=== PATIENT | female | born 1965 | race African-American/Black ===

== ENCOUNTER 2020-02-07 17:51 | Emergency (ER) | payer MEDICAID ==
[~2020-02-07] VITALS: Ht 165.1 cm; Wt 61.0 kg
[2020-02-07] MEDS ORDERED: DIPHENHYDRAMINE 50MG/ML VIAL IV ONE (18:45)
[2020-02-07] MEDS ORDERED: KETOROLAC 30MG/ML VIAL IV ONE (18:45)
[2020-02-07] MEDS ORDERED: METHYLPREDNISOLONE SOD SUCC 125 MG/2 ML VIAL IV ONE (19:30)
[2020-02-07 19:44] VITALS: BP 148/90
[2020-02-07] MEDS ORDERED: GABAPENTIN 100MG CAPSULE PO SCH (22:00)
== END 2020-02-07 20:52 | disposition home or self-care (01) ==
LOC: ER 17:51
DX: L23.3 Allergic contact dermatitis due to drugs in contact with skin (principal); T36.0X5A Adverse effect of penicillins, initial encounter; Y92.018 Other place in single-family (private) house as the place of occurrence of the external cause
CPT/HCPCS: 96374; 96375; 99284; J1200; J1885; J2930

== ENCOUNTER 2020-11-22 16:17 | Inpatient (IN) | payer MEDICAID, OTHER ==
[~2020-11-22] VITALS: Ht 167.6 cm; Wt 91.2 kg
[2020-11-22] MEDS ORDERED: HCTZ PO (16:25)
[2020-11-22] MEDS ORDERED: PERCOCET PO (16:25)
[2020-11-22] MEDS ORDERED: LISINOPRIL (16:25)
[2020-11-22] MEDS ORDERED: IPRATROPIUM/ALBUTEROL 0.5-3(2.5)MG/3ML NEB HHN ONE ×2 (17:00→21:30)
[2020-11-22] MEDS ORDERED: NITROGLYCERIN OINT 1GM/INCH UDPKT TD ONE (17:45)
[2020-11-22] MEDS ORDERED: FUROSEMIDE 40MG/4ML VIAL IVP ONE (17:45)
[2020-11-22 18:30] LABS: BASOPHILS % 1.3 % (0.0-2.0); EOSINOPHILS % 2.9 % (0.0-5.0); HEMATOCRIT. 37.5 % (36.0-48.0); HEMOGLOBIN. 12.6 g/dL (12.0-16.0); LYMPHOCYTES % 44.8 % (20.0-50.0); MEAN CORPUSCULAR VOLUME 101.1 fL (81.0-99.0); MONOCYTES % 6.8 % (2.0-8.0); NEUTROPHILS % 44.2 % (40.0-76.0); PLATELET 217 x1000/uL (130-400); RED CELL DISTRIBUTION WIDTH 15.5 % (11.6-14.6)
[2020-11-22 18:37] LABS: CHLORIDE 113 mEq/L (98-107)
[2020-11-22] MEDS ORDERED: NITROGLYCERIN 0.4MG TABLET SL SL ONE (22:15)
[2020-11-22] MEDS ORDERED: MORPHINE SULFATE 4 MG/ML CPJ (NOT FOR IM USE) IV ONE (22:15)
[2020-11-23] MEDS ORDERED: FUROSEMIDE 40MG/4ML VIAL IVP ONE
[2020-11-23] MEDS ORDERED: MORPHINE SULFATE 4 MG/ML CPJ (NOT FOR IM USE) IV ONE
[2020-11-23] MEDS ORDERED: MORPHINE SULFATE 2 MG/ML CPJ (NOT FOR IM USE) IV PRN (05:45)
[2020-11-23 09:20] VITALS: BP_SYST 109; BP_SYST 145; BP_DIAS 86
[2020-11-23] MEDS ORDERED: ATOR20TA PO (09:49)
[2020-11-23] MEDS ORDERED: IBUP-2030 PO (09:49)
[2020-11-23] MEDS ORDERED: ALBUTEROL 6.7GM HFA INHALER ORI PRN ×2 (11:45→20:00)
[2020-11-23] MEDS ORDERED: IPRATROPIUM/ALBUTEROL 0.5-3(2.5)MG/3ML NEB HHN PRN (11:45)
[2020-11-23 12:00] VITALS: BP 127/73
[2020-11-23 14:33] LABS: *AMPHETAMINES SCREEN URINE NEGATIVE (NEGATIVE); *BARBITURATES SCREEN URINE NEGATIVE (NEGATIVE); *BENZODIAZEPINES SCREEN URINE NEGATIVE (NEGATIVE); *COCAINE SCREEN URINE NEGATIVE (NEGATIVE); METHADONE URINE SCREEN NEGATIVE (NEGATIVE)
[2020-11-23 14:34] LABS: CANNABINOID URINE SCREEN NEGATIVE (NEGATIVE); OPIATES URINE SCREEN PRESUMTIVE POSITIVE (NEGATIVE); PHENCYCLIDINE URINE SCREEN PRESUMTIVE POSITIVE (NEGATIVE)
[2020-11-23 16:00] VITALS: BP 109/84
[2020-11-23] MEDS: FUROSEMIDE 40MG/4ML VIAL IVP SCH (16:17)
[2020-11-23] MEDS ORDERED: ENOXAPARIN 40MG/0.4ML SYR SUBCUT SCH (18:00)
[2020-11-23 20:00] VITALS: BP 108/81
[2020-11-23] MEDS ORDERED: METHYLPREDNISOLONE SOD SUCC 125 MG/2 ML VIAL IV ONE (20:30)
[2020-11-23] MEDS ORDERED: ATORVASTATIN CALCIUM 20MG TABLET PO SCH (21:00)
[2020-11-23] MEDS ORDERED: IOHEXOL-350 100 ML BOTTLE ONE (23:17)
[2020-11-24] VITALS (7 sets, daily range): BP systolic 96–143; BP diastolic 62–96
[2020-11-24] MEDS ORDERED: ALBUTEROL (0.083%) 2.5MG/3ML NEB HHN PRN (00:15)
[2020-11-24] MEDS: METHYLPREDNISOLONE SOD SUCC 40 MG/ML VIAL IV SCH ×3 (05:20→21:11)
[2020-11-24] MEDS: FUROSEMIDE 40MG/4ML VIAL IVP SCH ×2 (06:35→16:16)
[2020-11-24 07:25] LABS: BASOPHILS % 0.3 % (0.0-2.0); HEMATOCRIT. 38.4 % (36.0-48.0); HEMOGLOBIN. 13.2 g/dL (12.0-16.0); LYMPHOCYTES % 23.4 % (20.0-50.0); MEAN CORPUSCULAR HEMOGLOBIN 34.5 pg (28.0-32.0); MEAN CORPUSCULAR VOLUME 100.4 fL (81.0-99.0); MEAN PLATELET VOLUME 9.5 fl (7.4-10.4); MONOCYTES % 0.9 % (2.0-8.0); NEUTROPHILS % 75.4 % (40.0-76.0); PLATELET 221 x1000/uL (130-400); RED BLOOD CELL COUNT 3.83 mill/uL (4.2-5.4); RED CELL DISTRIBUTION WIDTH 15.3 % (11.6-14.6)
[2020-11-24 07:31] LABS: CHLORIDE 104 mEq/L (98-107)
[2020-11-24 07:58] LABS: HDL CHOLESTEROL 59 mg/dL (40-59); LDL CHOLESTEROL 181 mg/dL (5-100)
[2020-11-24] MEDS ORDERED: TRAMADOL 50MG TABLET PO PRN (13:45)
[2020-11-24] MEDS: ENOXAPARIN 30MG/0.3ML SYR SUBCUT SCH (16:16)
[2020-11-24] MEDS ORDERED: METO25TA6 MT (19:40)
[2020-11-24] MEDS ORDERED: LIP40 MT (19:40)
[2020-11-24] MEDS ORDERED: ASPI-1160 MT (19:40)
[2020-11-24] MEDS ORDERED: MED4 MT (19:40)
[2020-11-24] MEDS ORDERED: FURO-151 MT (19:40)
[2020-11-24] MEDS ORDERED: ATORVASTATIN CALCIUM 20MG TABLET PO SCH (21:00)
[2020-11-24] MEDS: METOPROLOL TARTRATE 25MG TABLET PO SCH (21:11)
[2020-11-24] MEDS ORDERED: ACETAMINOPHEN 325MG TABLET PO PRN (21:15)
[2020-11-25] VITALS (7 sets, daily range): BP systolic 95–121; BP diastolic 61–91
[2020-11-25] MEDS: ENOXAPARIN 30MG/0.3ML SYR SUBCUT SCH ×2 (00:39→08:36)
[2020-11-25] MEDS: METHYLPREDNISOLONE SOD SUCC 40 MG/ML VIAL IV SCH ×2 (06:24→13:54)
[2020-11-25] MEDS: FUROSEMIDE 40MG/4ML VIAL IVP SCH ×2 (06:24→16:47)
[2020-11-25 06:30] LABS: BASOPHILS % 0.2 % (0.0-2.0); HEMATOCRIT. 35.2 % (36.0-48.0); HEMOGLOBIN. 12.1 g/dL (12.0-16.0); LYMPHOCYTES % 13.4 % (20.0-50.0); MEAN CORPUSCULAR HEMOGLOBIN 33.9 pg (28.0-32.0); MEAN CORPUSCULAR VOLUME 98.9 fL (81.0-99.0); MEAN PLATELET VOLUME 9.7 fl (7.4-10.4); MONOCYTES % 4.4 % (2.0-8.0); PLATELET 257 x1000/uL (130-400); RED BLOOD CELL COUNT 3.56 mill/uL (4.2-5.4); RED CELL DISTRIBUTION WIDTH 15.2 % (11.6-14.6)
[2020-11-25 06:36] LABS: CHLORIDE 99 mEq/L (98-107)
[2020-11-25] MEDS: METOPROLOL TARTRATE 25MG TABLET PO SCH (08:36)
[2020-11-25] MEDS ORDERED: ASPIRIN 81MG TABLET PO SCH (09:00)
[2020-11-25] MEDS ORDERED: FLUT1DIS3 INH (09:47)
[2020-11-25] MEDS ORDERED: ALBU18HF2 IH (09:47)
== END 2020-11-25 19:50 | disposition home or self-care (01) | DRG 194 ==
LOC: ER 16:24 → 7WST 23:14 → EDBEDREQ 23:15 → EDBEDREQTM 23:15 → ENRESERV 11-23 07:18 → 8WST 11-24 00:05
PROVIDERS: ADMIT Internal Medicine; ATTEND Internal Medicine
PROC: 5A09357 Assistance with Respiratory Ventilation, Less than 24 Consecutive Hours, Continuous Positive Airway Pressure (ICD-10-PCS; principal; 2020-11-22)
DX: I11.0 Hypertensive heart disease with heart failure (principal); R65.11 Systemic inflammatory response syndrome (SIRS) of non-infectious origin with acute organ dysfunction; E87.8 Other disorders of electrolyte and fluid balance, not elsewhere classified; J45.901 Unspecified asthma with (acute) exacerbation; E66.9 Obesity, unspecified; E78.5 Hyperlipidemia, unspecified; G89.4 Chronic pain syndrome; I50.41 Acute combined systolic (congestive) and diastolic (congestive) heart failure; E78.00 Pure hypercholesterolemia, unspecified; Z20.822 Contact with and (suspected) exposure to COVID-19; Z88.0 Allergy status to penicillin; Z68.32 Body mass index [BMI] 32.0-32.9, adult; Z71.51 Drug abuse counseling and surveillance of drug abuser
CPT/HCPCS: 36415; 71045; 71275; 80048; 80053; 80061; 80305; 83036; 83880; 84484; 85025; 85379; 87426; 93005; 93306; 93970; 94640; 94660; 99291; J1650; J1940; J2270; J2920; J2930; Q9967; U0003; U0005

== ENCOUNTER 2021-01-30 21:40 | Emergency (ER) | payer OTHER ==
[~2021-01-30] VITALS: Ht 167.6 cm; Wt 71.0 kg
[~2021-01-30 21:40] MED LIST: ALBU18HF2 IH; ASPI-1160 MT; ATOR20TA PO; FLUT1DIS3 INH; FURO-151 MT; HCTZ PO; IBUP-2030 PO; LIP40 MT; MED4 MT; METO25TA6 MT; PERCOCET PO
[2021-01-30] MEDS ORDERED: ACETAMINOPHEN 325MG TABLET PO STA (22:30)
[2021-01-30] MEDS ORDERED: SODIUM CHLORIDE 0.9% 1,000 ML IV ONE (22:30)
[2021-01-30 23:58] LABS: CHLORIDE 111 mEq/L (98-107)
[2021-01-31 00:05] LABS: BASOPHILS % 0.6 % (0.0-2.0); HEMATOCRIT. 40.2 % (36.0-48.0); HEMOGLOBIN. 13.3 g/dL (12.0-16.0); MEAN CORPUSCULAR HEMOGLOBIN 32.9 pg (28.0-32.0); MEAN CORPUSCULAR VOLUME 99.8 fL (81.0-99.0); MEAN PLATELET VOLUME 9.2 fl (7.4-10.4); MONOCYTES % 14.3 % (2.0-8.0); NEUTROPHILS % 39.1 % (40.0-76.0); PLATELET 158 x1000/uL (130-400); RED BLOOD CELL COUNT 4.03 mill/uL (4.2-5.4); RED CELL DISTRIBUTION WIDTH 16.5 % (11.6-14.6)
[2021-01-31] MEDS ORDERED: IBUPROFEN 600MG TABLET PO SCH (00:30)
[2021-01-31 11:15] VITALS: BP 109/79
== END 2021-01-31 11:25 | disposition short-term general hospital (02) ==
LOC: ER 21:40
DX: U07.1 COVID-19 (principal); J18.9 Pneumonia, unspecified organism; N17.9 Acute kidney failure, unspecified; R00.0 Tachycardia, unspecified; I10 Essential (primary) hypertension; E78.00 Pure hypercholesterolemia, unspecified; J45.909 Unspecified asthma, uncomplicated; Z79.899 Other long term (current) drug therapy; Z88.0 Allergy status to penicillin
CPT/HCPCS: 36415; 71045; 80053; 83605; 83880; 84484; 85025; 85379; 87040; 87426; 93005; 96360; 99285; J7030